=== PATIENT | male | born 1960 | race Caucasian/White ===

== ENCOUNTER 2018-08-16 19:26 | Emergency (ER) | payer OTHER ==
[~2018-08-16] VITALS: Ht 180.3 cm; Wt 111.4 kg
[~2018-08-16 19:26] MED LIST: ATIVAN 0.50.5 MG/TAB PO; COZAAR100 MG PO; DIABETA1.25 MG PO; FLEXERIL 1010 MG/TAB PO; GLUCOPHAGE1000 MG PO; HCTZ 25MG TAB25 MG PO; JANUVIA 100MG100 MG PO; MOBIC15 MG PO; NORCO 325 MG-51 TAB PO; VICTOZA6 MG/ML SC; WELLBUTRIN 100100 MG PO; ZOCOR 20MG20 MG PO; ZOFRAN 4MG T4 MG/TAB PO
[2018-08-16 19:31] VITALS: TEMP 96.6
[2018-08-16] MEDS ORDERED: GLUCOPHAGE1000 MG PO (19:45)
[2018-08-16 19:51] LABS: BASO # 0.1 (0.0-0.2); BASO % 1.1 % (0.0-2.0); EOS # 0.2 (0.0-0.7); GRAN # 4.9 (1.4-6.5); GRAN % 61.5 % (42.2-75.2); HEMATOCRIT 44.7 % (42.0-52.0); HEMOGLOBIN 15.2 g/dl (13.5-18.0); LYMPH # 2.2 (1.2-3.4); MEAN CELL VOLUME 88 fl (80.0-100.0); MEAN CORPUSCULAR HEMOGLOBIN 30 pg (27.0-31.0); MEAN CORPUSCULAR HGB CONC 34 g/dl (33.0-37.0); MEAN PLATELET VOLUME 9.7 fl (7.4-10.4); MONO # 0.6 (0.1-0.6); MONO % 7.3 % (1.7-9.3); PLATELET COUNT 224 K/mm3 (130-400); RED BLOOD COUNT 5.08 M/mm3 (4.20-5.60); REDCELL DISTRIBUTION WIDTH-CV 12.2 % (11.5-14.5)
[2018-08-16 20:02] LABS: ALBUMIN 4.2 gm/dL (3.5-5.0); BILIRUBIN,TOTAL 0.7 mg/dL (0.0-1.0); CALCIUM 9.7 mg/dL (8.4-10.2); CREATININE, serum 0.89 (0.66-1.25); POTASSIUM 3.7 mmol/L (3.4-5.0); TOTAL PROTEIN 7.3 gm/dL (6.4-8.2)
[2018-08-16] MEDS ORDERED: WELLBUTRIN SR150 M1 PO (20:02)
[2018-08-16] MEDS ORDERED: VYVANSE50 MG PO (20:02)
[2018-08-16] MEDS ORDERED: VIIBRYD40 MG PO (20:02)
[2018-08-16] MEDS ORDERED: MOBIC 7.5MG7.5 MG PO (20:02)
[2018-08-16] MEDS ORDERED: VICTOZA6 MG/ML SQ (20:02)
[2018-08-16] MEDS ORDERED: NORVASC 10MG10 MG PO (20:03)
[2018-08-16] MEDS ORDERED: LEVEMIR FLEX100 U/ML SQ (20:03)
[2018-08-16 20:38] LABS: COLLECTION METHOD CLEAN CATCH
[2018-08-16 20:55] LABS: MUCOUS Present /lpf; PH 5 (5-8); SQUAMOUS EPITHELIAL None Seen /hpf; URINE APPEARANCE Cloudy; URINE BACTERIA None Seen /hpf; URINE BILIRUBIN Negative (NEGATIVE); URINE BLOOD 3+ (NEGATIVE); URINE CALCIUM OXALATE CRYSTAL Present /hpf; URINE COLOR Yellow; URINE GLUCOSE Negative (NEGATIVE); URINE KETONE Trace (NEGATIVE); URINE LEUKOCYTE ESTERASE Negative (NEGATIVE); URINE NITRATE Negative (NEGATIVE); URINE PROTEIN(semi-quant) 2+ (NEGATIVE); URINE RBC >50 /hpf; URINE UROBILINOGEN Negative (NEGATIVE)
[2018-08-16] MEDS ORDERED: FLOMAX 0.40.4 MG/CAP PO (21:13)
[2018-08-16] MEDS ORDERED: NORCO 325 MG-51 TAB PO (21:13)
[2018-08-16] MEDS ORDERED: ZOFRAN 4MG T4 MG/TAB PO (21:13)
[2018-08-16 21:35] VITALS: BP 145/94; PULSE 97
== END 2018-08-16 21:36 | disposition home or self-care (01) ==
LOC: COL.ER 19:26
PROVIDERS: Emergency Medicine
DX: R10.9 Unspecified abdominal pain (principal); I10 Essential (primary) hypertension; E11.9 Type 2 diabetes mellitus without complications; Z98.890 Other specified postprocedural states; Z88.1 Allergy status to other antibiotic agents; Z79.84 Long term (current) use of oral hypoglycemic drugs
CPT/HCPCS: J1885; J2270; J2405; J7030

== ENCOUNTER 2018-10-12 10:24 | Day surgery (SDC) | payer OTHER ==
[2018-10-12] VITALS (7 sets, daily range): BP systolic 142–162; BP diastolic 85–100; PULSE 81–100; TEMP 97.2–97.7
[~2018-10-12] VITALS: Ht 180.3 cm; Wt 52.3 kg
[~2018-10-12 10:24] MED LIST changes: +FLOMAX 0.40.4 MG/CAP PO; +HYZAAR 25 MG-101 TAB PO; +LASIX 20MG TABL20 MG PO; +LEVEMIR FLEX100 U/ML SQ; +MOBIC 7.5MG7.5 MG PO; +NORVASC 10MG10 MG PO; +VICTOZA6 MG/ML SQ; +VIIBRYD40 MG PO; +VYVANSE50 MG PO; +WELLBUTRIN XL150 MG PO
[2018-10-12] MEDS ORDERED: ZYRTEC 10MG10 MG PO (10:59)
[2018-10-12] MEDS ORDERED: NORVASC 5MG5 MG/TAB PO (11:00)
[2018-10-12] MEDS ORDERED: ASPIRIN 81M81 MG/TA2 PO (11:01)
--- NOTE | 2018-10-12 13:40 | NUR ---
Patient arrives back from PACU alert, denies pain or nausea. Patient monitor applied, vitals stable. FSBS checked and is stable. Patient's fiance brought to bedside. Patient given water and has urinal in place and is trying to urinate.
[2018-10-12] MEDS ORDERED: NORCO 325 MG-51 TAB PO (13:56)
[2018-10-12] MEDS ORDERED: SENNA-S 50 MG-81 TAB PO (13:57)
[2018-10-12] MEDS ORDERED: PYRIDIUM 100MG100 MG PO (13:57)
--- NOTE | 2018-10-12 14:05 | NUR ---
Patient up to restroom at this time. 150ml of strawberry colored urine with small sediment emptied from urinal.
--- NOTE | 2018-10-12 14:30 | NUR ---
Patient up to restroom again at this time. Patient complains of urge/burning with urination. Order obtained from Dr You for Pydridium now.
--- NOTE | 2018-10-12 14:45 | NUR ---
Patient reports that he had a bowel movement, and reports having the urge to urinate.
--- NOTE | 2018-10-12 15:15 | NUR ---
Patient complains of burning sensation to urinate. Patient educated that the new stent placement is most likely causing that sensation. Will give PRN pain medication.
--- NOTE | 2018-10-12 15:30 | NUR ---
Patient back in restroom at this time.
--- NOTE | 2018-10-12 15:50 | NUR ---
Patient still in restroom.
--- NOTE | 2018-10-12 16:00 | NUR ---
Patient still in restroom, patient reports that he thinks he is constipated. Denies needing anything at this time.
--- NOTE | 2018-10-12 16:10 | NUR ---
Patient out of restroom at this time. Reports that he feels good, just has some burning with urination and states that he feels constipated. Patient reports that he is ready to go home.
--- NOTE | 2018-10-12 16:35 | NUR ---
Dismissal instructions gone over with patient and patient's spouse. Both verbalize understanding and all questions answered.
--- NOTE | 2018-10-12 16:40 | NUR ---
Patient dismissed to home and leaves thanking staff for services.
== END 2018-10-12 16:40 | disposition home or self-care (01) ==
LOC: SDCO 10:24
DX: N20.1 Calculus of ureter (principal); I10 Essential (primary) hypertension; E78.00 Pure hypercholesterolemia, unspecified; E11.9 Type 2 diabetes mellitus without complications; Z79.4 Long term (current) use of insulin; Z88.0 Allergy status to penicillin; Z88.1 Allergy status to other antibiotic agents; Z83.3 Family history of diabetes mellitus; Z82.49 Family history of ischemic heart disease and other diseases of the circulatory system; Z80.9 Family history of malignant neoplasm, unspecified; G47.33 Obstructive sleep apnea (adult) (pediatric)
CPT/HCPCS: C1769; C2617; J0690; J2405; J2704; J3010; J7030; Q9967